=== PATIENT | male | born 1955 | race Caucasian/White ===

== ENCOUNTER 2016-11-28 03:05 | Emergency (ER) | payer OTHER ==
[2016-11-28] MEDS ORDERED: LIDOCAINE VISCOUS 2% 15 ML UDC ONE ×2 (03:23→04:43)
[2016-11-28] MEDS ORDERED: MAG-AL PLUS XS SUSP 30 ML UDC ONE ×3 (03:23→04:41)
[2016-11-28] MEDS ORDERED: LOPERAMIDE HCL 2 MG CAPSULE PO ONE (03:41)
[2016-11-28] MEDS ORDERED: ONDANSETRON ODT 8 MG TAB.RAPDIS PO ONE (03:44)
[2016-11-28] MEDS ORDERED: FAMOTIDINE IN SALINE, ISO-OSM 50 ML IV ONE (04:42)
[2016-11-28] MEDS ORDERED: PANTOPRAZOLE 40 MG VIAL IV ONE (04:42)
[2016-11-28] MEDS ORDERED: NORMAL SALINE 100 ML IV ONE (04:42)
[2016-11-28 05:11] LABS: BASOPHILS 0.2 % (0.0-2.0); EOSINOPHILS 0.6 % (0.0-6.0); EOSINOPHILS# 0.1 X 10^3uL (0.0-0.4); HEMATOCRIT 45.7 % (42.0-54.0); HEMOGLOBIN 15.4 g/dL (14.0-18.0); LYMPHOCYTES 10.9 % (20.0-40.0); LYMPHOCYTES# 1.1 X 10^3uL (0.8-3.8); MEAN CELL VOLUME 93.3 fL (80.0-100.0); MEAN CORPUS. HGB CONCENTRATION 33.6 g/dL (32.0-36.0); MEAN CORPUSCULAR HEMOGLOBIN 31.3 pg (29.0-35.0); MEAN PLATELET VOLUME 9.9 fL (7.4-10.4); MONOCYTES 8.5 % (2.0-10.0); MONOCYTES# 0.8 X 10^3uL (0.2-1.0); NEUTROPHILS 79.8 % (54.0-75.0); NEUTROPHILS# 7.7 X 10^3uL (2.6-6.7); PLATELET COUNT 139 X 10^3uL (130-440); RED CELL DISTRIBUTION WIDTH 14.1 % (11.5-14.5); WHITE BLOOD COUNT 9.7 X 10^3uL (3.9-10.7)
[2016-11-28 05:26] LABS: CHLORIDE 104 mmol/L (98-107); POTASSIUM 3.9 mmol/L (3.5-5.1); SODIUM 140 mmol/L (137-145)
[2016-11-28 05:27] LABS: BLOOD UREA NITROGEN 21 mg/dL (9-20); CALCIUM 11.8 mg/dL (8.4-10.2); CREATININE 1.1 mg/dL (0.7-1.3); EST GLOMERULAR FILTRATION RATE > 60 mL/min; GLUCOSE 151 mg/dL (70-100)
[2016-11-28 05:34] LABS: TROPONIN I < 0.012 ng/mL (0.00-0.034)
--- NOTE | 2016-11-28 05:52 | ER PHYSICIAN DOCUMENTATION ---
Physician Documentation [facility] Name:Ernie Duggan Age:61 yrs Sex:Male :1955 Arrival Date:11/28/2016 Time:03:05 Bed1 Private MD: Dio Thompson Disposition: 11/28/16 03:29 Discharged to Home/Self Care. Impression: GERD, Gastroenteritis; Viral. - Condition is Good. - Discharge Instructions: ESOPHAGEAL REFLUX (Adult), GASTROENTERITIS, Viral [6y-Adult]. - Medical Reconciliation form form. - Follow up: Private Physician; When: As needed; Reason: Worsening of condition. - Problem is an ongoing problem. - Symptoms are resolved. HPI: 11/28 03:15 This 61 yrs old Male presents to ER with complaints of Diarrhea, Abdominal sc Pain. 03:15 The patient presents to the emergency department with diarrhea, described as watery, sc with associated abdominal pain, of the left upper quadrant, described as burning, and does not radiate. Onset: The symptom(s)/episode began/occurred 2 year(s) ago, and became worse 2 day(s) ago. Possible causes: sick contacts, by co-worker(s). The symptoms are alleviated by antacids. Associated signs and symptoms: The patient has no apparent associated signs or symptoms. The patient has experienced similar episodes in the past, chronically. egd and colonoscopy this past month, no EtOH x one year, h/o severe GERD and this is the same. Historical: - Home Meds: 1. pantoprazole oral 2. pramipexole oral 3. Metformin Oral 4. Glipizide Oral 5. jardiance 6. atorvastatin oral 7. Zantac Oral - PMHx: Diabetes - NIDDM; hyperlipidemia; - PSHx: Cholecysectomy; - Tetanus: < 10 years. - Ebola Screening: : Patient denies exposure to infectious person. Patient denies travel to an Ebola-affected area in the 21 days before illness onset. . - Immunization history: Flu Vaccine < 1 year. - Social history: Smoking status: Patient states was never smoker of tobacco. Patient/guardian denies using alcohol, the patient reports quitting approximately 1 years ago. - Code Status:: Full code. ROS: 03:17 Constitutional: Negative for fever, chills, and weight loss. sc Eyes: Negative for injury, pain, redness, and discharge. ENT: Negative for injury, pain, and discharge. Neck: Negative for injury, pain, and swelling. Cardiovascular: Negative for chest pain, palpitations, and edema. Respiratory: Negative for shortness of breath, cough, wheezing, and pleuritic chest pain. Back: Negative for injury and pain. MS/Extremity: Negative for injury and deformity. Skin: Negative for injury, rash, and discoloration. 03:17 Neuro: Negative for headache, weakness, numbness, tingling, and seizure. sc 03:17 Abdomen/GI: Positive for abdominal pain, diarrhea. Exam: Constitutional: This is a well developed, well nourished patient who is awake, alert, and in no acute distress. Head/Face: Normocephalic, atraumatic. Eyes: Pupils equal round and reactive to light, extra-ocular motions intact. Lids and lashes normal. Conjunctiva and sclera are non-icteric and not injected. Cornea within normal limits. Periorbital areas with no swelling, redness, or edema. Chest/axilla: Normal chest wall appearance and motion. Nontender with no deformity. No lesions are appreciated. Cardiovascular: Regular rate and rhythm with a normal S1 and S2. No gallops, murmurs, or rubs. Normal PMI, no JVD. No pulse deficits. Respiratory: Lungs have equal breath sounds bilaterally, clear to auscultation and percussion. No rales, rhonchi or wheezes noted. No increased work of breathing, no retractions or nasal flaring. Abdomen/GI: Soft, non-tender, with normal bowel sounds. No distension or tympany. No guarding or rebound. No evidence of tenderness throughout. 03:18 Skin: Warm, dry with normal turgor. Normal color with no rashes, no lesions, and no sc evidence of cellulitis. 03:18 Constitutional: The patient appears alert, awake. 03:18 Cardiovascular: Rate: normal, Rhythm: regular. 03:18 Abdomen/GI: Inspection: abdomen appears normal, Bowel sounds: active, Palpation: abdomen is soft and non-tender. 03:29 Skin: Exam negative for acute changes. pr Vital Signs: 03:21 BP 143 / 76; Pulse 100; Resp 18; Pulse Ox 93% on R/A; Weight 116.57 kg; Height 5 ft. 10 lb in. (177.80 cm); Pain 1/10; 05:33 BP 120 / 56; lb 05:50 BP 120 / 56; Pulse 88; Resp 14; Pulse Ox 94% on R/A; Pain 1/10; lb 03:21 Body Mass Index 36.88 (116.57 kg, 177.80 cm) lb MDM: 03:15 Patient medically screened. pr 03:19 Differential diagnosis: gastritis, viral gastroenteritis, gastroenteritis. Data sc reviewed: vital signs, nurses notes, old medical records, and as a result, I will continue to observe the patient. Counseling: I had a detailed discussion with the patient and/or guardian regarding: the historical points, exam findings, and any diagnostic results supporting the discharge/admit diagnosis, the need for outpatient follow up, to return to the emergency department if symptoms worsen or persist or if there are any questions or concerns that arise at home. 11/28 05:26 Order name: CBC AUTO DIF, MDIF/RMOR IF IND [facility] 11/28 05:41 Interpretation: Normal: Normal. pr 11/28 05:30 Order name: BASIC METABOLIC PANEL [facility] 11/28 05:41 Interpretation: Normal. pr 11/28 05:35 Order name: TROPONIN I [facility] 11/28 05:41 Interpretation: Normal. pr 11/28 09:47 Order name: HEPATIC PANEL [facility] 11/28 09:47 Order name: LIPASE EDOK Dispensed Medications: 03:22 Drug: GI Cocktail w/o Donnatol - (Maalox Suspension 30 ml, Lidocaine Liquid 2 % 15 ml); lb Route: PO; 03:22 Follow up: Response: Pain is decreased lb 03:33 Drug: Zofran 8 mg; Route: PO; lb 05:50 Follow up: Response: Nausea is decreased lb 03:34 Drug: Imodium Liquid 4 mg; Route: PO; lb 03:34 Follow up: Response: Pharmacy closed - take home med pack lb 03:34 Drug: Maalox Suspension (200 mg-200 mg-20 mg/5 mL) 30 ml; Route: PO; lb 03:34 Follow up: Response: Pharmacy closed - take home med pack lb 04:46 Drug: Pepcid 20 mg; Route: IVPB; Site: left antecubital; lb 05:26 Follow up: IV Status: Completed infusion; IV Intake: 50ml lb 05:26 Follow up: Response: Pain is decreased lb 04:57 Drug: Protonix 40 mg; Route: IVPB; Site: left antecubital; lb 05:32 Follow up: Response: Pain is decreased; IV Status: Completed infusion; IV Intake: 100ml lb 04:57 Drug: Phenergan 12.5 mg; Route: IVP; Site: left antecubital; lb 05:27 Follow up: Response: Nausea is decreased lb 04:58 Not Given (Patient Refused): GI Cocktail w/o Donnatol - (Maalox Suspension 30 ml, lb Lidocaine Liquid 2 % 15 ml) PO once Point of Care Testing: Blood Glucose: 04:00 Blood Glucose: 158 mg/dL; lb Ranges: Critical Glucose Levels:Adult <50 mg/dl or >400 mg/dl <40 mg/dl or >180 mg/dl Signatures: Dio Camacho MD MD sc Bollock, Lynda lb
--- NOTE | 2016-11-28 05:52 | ER NURSING DOCUMENTATION ---
Nurse's Notes [facility] Name:Ernie Duggan Age:61 yrs Sex:Male :1955 Arrival Date:11/28/2016 Time:03:05 Bed1 Private MD: Diagnosis:GERD;Gastroenteritis; Viral Presentation: 11/28 03:17 Presenting complaint: Patient states: epigastric pain for 1 day, hx gerd. also c/o lb diarrhea for 2 days, unable to lay flat due to epigastric pain. Transition of care: patient was not received from another setting of care. Notified ED Physician of Dr. Camacho notified. 03:17 Acuity: SUDHEER 3 lb 03:17 Method Of Arrival: Walk In lb Triage Assessment: 03:21 General: Appears distressed, Behavior is appropriate for age, pleasant. Pain: Complains lb of pain in xyphoid area Pain does not radiate. Pain currently is 1 out of 10 on a pain scale. GI: No deficits noted. Historical: - Home Meds: 1. pantoprazole oral 2. pramipexole oral 3. Metformin Oral 4. Glipizide Oral 5. jardiance 6. atorvastatin oral 7. Zantac Oral - PMHx: Diabetes - NIDDM; hyperlipidemia; - PSHx: Cholecysectomy; - Tetanus: < 10 years. - Ebola Screening: : Patient denies exposure to infectious person. Patient denies travel to an Ebola-affected area in the 21 days before illness onset. . - Immunization history: Flu Vaccine < 1 year. - Social history: Smoking status: Patient states was never smoker of tobacco. Patient/guardian denies using alcohol, the patient reports quitting approximately 1 years ago. - Code Status:: Full code. Screenin:22 Infectious Disease Risk None. Abuse screen: Denies threats or abuse. Denies injuries lb from another. Nutritional screening: No deficits noted. Assessment: 03:22 See Triage Assessment done by same RN. lb 03:59 Reassessment: pt requesting blood glucose to be checked due to not feeling well. BG 158.lb 04:47 Reassessment: Patient states symptoms have not improved. Pt states he is feeling worse, lb nausea worse and epigastric pain is now worse. MD made aware and new orders given. Vital Signs: 03:21 BP 143 / 76; Pulse 100; Resp 18; Pulse Ox 93% on R/A; Weight 116.57 kg; Height 5 ft. 10 lb in. (177.80 cm); Pain 1/10; 05:33 BP 120 / 56; lb 05:50 BP 120 / 56; Pulse 88; Resp 14; Pulse Ox 94% on R/A; Pain 1/10; lb 03:21 Body Mass Index 36.88 (116.57 kg, 177.80 cm) lb ED Course: 03:07 Patient arrived in ED. ma1 03:15 Dio Camacho MD is Attending Physician. sc 03:17 Dulce Pickard is Primary Nurse. lb 03:18 Triage completed. lb 03:22 Valuables Remains with patient. lb 04:48 Inserted peripheral IV: 20 gauge in left antecubital area and blood collected. lb Administered Medications: 03:22 Drug: GI Cocktail w/o Donnatol - (Maalox Suspension 30 ml, Lidocaine Liquid 2 % 15 ml); lb Route: PO; 03:22 Follow up: Response: Pain is decreased lb 03:33 Drug: Zofran 8 mg; Route: PO; lb 05:50 Follow up: Response: Nausea is decreased lb 03:34 Drug: Imodium Liquid 4 mg; Route: PO; lb 03:34 Follow up: Response: Pharmacy closed - take home med pack lb 03:34 Drug: Maalox Suspension (200 mg-200 mg-20 mg/5 mL) 30 ml; Route: PO; lb 03:34 Follow up: Response: Pharmacy closed - take home med pack lb 04:46 Drug: Pepcid 20 mg; Route: IVPB; Site: left antecubital; lb 05:26 Follow up: IV Status: Completed infusion; IV Intake: 50ml lb 05:26 Follow up: Response: Pain is decreased lb 04:57 Drug: Protonix 40 mg; Route: IVPB; Site: left antecubital; lb 05:32 Follow up: Response: Pain is decreased; IV Status: Completed infusion; IV Intake: 100ml lb 04:57 Drug: Phenergan 12.5 mg; Route: IVP; Site: left antecubital; lb 05:27 Follow up: Response: Nausea is decreased lb 04:58 Not Given (Patient Refused): GI Cocktail w/o Donnatol - (Maalox Suspension 30 ml, lb Lidocaine Liquid 2 % 15 ml) PO once Point of Care Testing: Blood Glucose: 04:00 Blood Glucose: 158 mg/dL; lb Ranges: Intake: 05:26 IV: 50ml; Total: 50ml. lb 05:32 IV: 100ml; Total: 150ml. lb Outcome: 03:29 Discharge ordered by . ms 05:50 Discharged to home ambulatory. lb 05:50 Condition: good 05:50 Discharge Assessment: Patient awake, alert and oriented x 3. No cognitive and/or functional deficits noted. Patient verbalized understanding of disposition instructions. 05:50 Instructed on discharge instructions, follow up and referral plans. 05:50 IV D/Stan 05:51 Patient left the ED. lb Signatures: Dio Camacho MD MD sc Bollock, Lynda lb Addison, Melissa ma1
[2016-11-28 09:44] LABS: ALBUMIN 4.3 g/dL (3.5-5.0); ALKALINE PHOSPHATASE 89 U/L (38-126); ALT 41 U/L (21-72); AST 41 U/L (17-59); BILIRUBIN, DIRECT 0.3 mg/dL (0.0-0.4); LIPASE 128 U/L (23-300); TOTAL PROTEIN 7.7 g/dL (6.3-8.2)
== END 2016-11-28 05:51 | disposition home or self-care (01) ==
LOC: ER 03:05
DX: K21.9 Gastro-esophageal reflux disease without esophagitis (principal); A08.4 Viral intestinal infection, unspecified; E11.9 Type 2 diabetes mellitus without complications; E78.5 Hyperlipidemia, unspecified; Z79.899 Other long term (current) drug therapy
CPT/HCPCS: 80048; 80076; 83690; 84484; 85025; 96365; 96367; 96368; 96375; 99284; J2550